=== PATIENT | female | born 1990 | race Caucasian/White ===

== ENCOUNTER → 2017-10-16 | Outpatient (CLI) | payer BC | LOC: COL.RAD 08:52 | DX: E04.1 Nontoxic single thyroid nodule (principal) ==

== ENCOUNTER → 2017-10-31 | Outpatient (CLI) | payer BC ==
[~2017-10-31] VITALS: Ht 162.6 cm; Wt 64.2 kg
[~2017-10-31] MED LIST: ALLEGRA 180MG180 MG PO; FLONASEALLERGY NS; LOW-OGESTREL 281 TAB PO; XANAX .25M0.25 MG/TA PO
[2017-10-31 09:04] VITALS: BP 128/72; PULSE 102
[2017-10-31 10:30] VITALS: BP 102/60; PULSE 82
== END ==
LOC: COL.RAD 08:48
DX: E04.1 Nontoxic single thyroid nodule (principal)